=== PATIENT | female | born 1995 | race Native Hawaiian/Other Pacific Islander ===

== ENCOUNTER 2016-08-16 23:08 | Emergency (ER) | payer SELFPAY ==
[~2016-08-16] VITALS: Ht 157.5 cm; Wt 54.7 kg
[~2016-08-16 23:08] MED LIST: IBUP600 PO
[2016-08-16 23:50] VITALS: BP 109/72; PULSE 72; RESP 12; TEMP 98.6; O2SAT 98
[2016-08-17] MEDS ORDERED: MUPI2%T TOPICAL (00:27)
[2016-08-17] MEDS ORDERED: CEPH500C PO (00:27)
--- NOTE | 2016-08-17 00:27 | PD ---
HPI Chief Complaint: ENT Complaint Time Seen by Provider: 00:09 Travel History International Travel<30 days: No Contact w/Intl Traveler<30days: No Traveled to known affect area: No History of Present Illness HPI The patient is a 20-year-old female who presents emergency department for swelling of the left ear secondary to piercing. The patient had a piercing placed in the left ear several months ago, has continued to have irritation, erythema, and swelling around the affected area. The patient tried to remove the piercing, but was unsuccessful. The patient is unsure if she has a secondary infection or an allergy to the metal that was used during the piercing. Symptoms are mild, exacerbated after having her ear pierced, and there are no current alleviating factors. She denies any associated fever, chills, or sweats. She denies . PFSH Past Medical History Diminished Hearing: No Immunizations Current: Yes Social History Alcohol Use: No Tobacco Use: No Substance Use: No Allergies-Medications (Allergen,Severity, Reaction): Coded Allergies: No Known Allergies (Verified , 06/02/15) Reported Meds & Prescriptions Reported Meds & Active Scripts Active Motrin 600 Mg Tab (Ibuprofen) 600 Mg Tab 600 Mg PO Q6H PRN Review of Systems Except as stated in HPI: all other systems reviewed are Neg General / Constitutional: No: Fever HENT: Positive: Other (as noted in the history of present illness) Skin: Positive Other (as noted in history of present illness) Physical Exam Narrative GENERAL: Awake, alert, pleasant 20-year-old female who appears her stated age and is in no acute respiratory distress. SKIN: Focused skin assessment warm/dry. HEAD: Atraumatic. Normocephalic. EYES: Pupils equal and round. No scleral icterus. No injection or drainage. ENT: No nasal bleeding or discharge. The left auricle has a piercing of the posterior aspect with some surrounding erythema and crusting from the piercing. The EAC is clear. NECK: Trachea midline. No JVD. MUSCULOSKELETAL: No obvious deformities. No clubbing. No cyanosis. No edema. NEUROLOGICAL: Awake and alert. No obvious cranial nerve deficits. Motor grossly within normal limits. Normal speech. PSYCHIATRIC: Appropriate mood and affect; insight and judgment normal. Data Data Last Documented VS Vital Signs Date Time Temp Pulse Resp B/P Pulse Ox O2 Delivery O2 Flow Rate FiO2 08/16/16 23:50 98.6 72 12 109/72 98 MDM Medical Decision Making Medical Screen Exam Complete: Yes Emergency Medical Condition: Yes Medical Record Reviewed: Yes Differential Diagnosis Differential diagnosis includes cellulitis, abscess, foreign body reaction, metal allergy. Narrative Course The piercing was removed using Arlene clamps, there was no obvious drainage from the affected area. The patient was placed on Keflex and Bactroban. She is advised to clean the area twice a day with soap and water, monitor for signs of increasing infection, to follow-up with her primary physician. Diagnosis Primary Impression: Foreign body in left ear lobe Qualified Code: S00.452A - Foreign body in left ear lobe, initial encounter Patient Instructions: General Instructions Additional Instructions: Clean the area twice a day with soap and water. Keflex and Bactroban as directed. Follow-up with your primary physician. Return if symptoms worsen or progress. Med/Other Pt SpecificInfo: Prescription(s) given Scripts Mupirocin Topical (Bactroban Topical)22 Gm Cream1 Applic TOPICAL BID 7 Days Ref 0 Prov:Jeff Pedroza MD 08/17/16 Cephalexin 500 Mg [id number] Mg PO Q6H #28 CAP Ref 0 Prov:Jeff Pedroza MD 08/17/16 Disposition: 01 DISCHARGE HOME Condition: Stable Jeff Pedroza MD August 17, 2016 00:27
== END 2016-08-17 00:54 | disposition home or self-care (01) ==
LOC: PHED 23:08
DX: S00.452A Superficial foreign body of left ear, initial encounter (principal); W26.8XXA Contact with other sharp object(s), not elsewhere classified, initial encounter; W45.8XXA Other foreign body or object entering through skin, initial encounter
CPT/HCPCS: 99283

== ENCOUNTER 2017-06-19 18:46 | Emergency (ER) | payer SELFPAY ==
[~2017-06-19] VITALS: Ht 154.9 cm; Wt 57.0 kg
[2017-06-19 18:51] VITALS: BP 119/74; PULSE 80; RESP 16; TEMP 98.8; O2SAT 100
[2017-06-19] MEDS ORDERED: SODIUM CHLOR 0.9% 1000 ML INJ 1,000 ML IV ONE (19:30)
--- NOTE | 2017-06-19 19:59 | PD ---
HPI Chief Complaint: Abdominal Pain Time Seen by Provider: 19:21 Travel History International Travel<30 days: No Contact w/Intl Traveler<30days: No Traveled to known affect area: No History of Present Illness HPI This is a 21-year-old female presented to the ER complaining of nausea vomiting for the last few weeks. Patient is 6 weeks and states that she is unable to hold food down. She tried multiple ways of drinking fluids but states that she threw up fluids as well. Patient did not try any over-the- counter medications for her nausea and did see her rn otolaryngology. She denies any fevers chills or night sweats, denies any diarrhea or abdominal pain. There is no elevation of the discharge. PFSH Past Medical History Diminished Hearing: No Immunizations Current: Yes ?: LMP: 05/03/2017 Social History Alcohol Use: No Tobacco Use: No Substance Use: No Allergies-Medications (Allergen,Severity, Reaction): Coded Allergies: No Known Allergies (Verified Adverse Reaction, Unknown, 06/19/17) Reported Meds & Prescriptions Reported Meds & Active Scripts Active No Active Prescriptions or Reported Medications Review of Systems Except as stated in HPI: all other systems reviewed are Neg Physical Exam Narrative GENERAL: Alert oriented 3 in no acute distress SKIN: Focused skin assessment warm/dry. HEAD: Atraumatic. Normocephalic. EYES: Pupils equal and round. No scleral icterus. No injection or drainage. ENT: No nasal bleeding or discharge. Mucous membranes pink and moist. NECK: Trachea midline. CARDIOVASCULAR: Regular rate and rhythm. No murmur appreciated. RESPIRATORY: No accessory muscle use. Clear to auscultation. Breath sounds equal bilaterally. GASTROINTESTINAL: Abdomen soft, non-tender, nondistended. Hepatic and splenic margins not palpable. MUSCULOSKELETAL: No obvious deformities. No clubbing. No cyanosis. No edema. NEUROLOGICAL: Awake and alert. No obvious cranial nerve deficits. Motor grossly within normal limits. Normal speech. PSYCHIATRIC: Appropriate mood and affect; insight and judgment normal. Data Data Last Documented VS Vital Signs Date Time Temp Pulse Resp B/P (MAP) Pulse Ox O2 Delivery O2 Flow Rate FiO2 06/19/17 20:16 74 12 95/53 (67) 100 Room Air 06/19/17 18:51 98.8 Orders Orders Complete Blood Count With Diff (06/19/17 19:21) Comprehensive Metabolic Panel (06/19/17 19:21) Urinalysis - C+S If Indicated (06/19/17 19:21) Sodium Chlor 0.9% 1000 Ml Inj (Ns 1000 M (06/19/17 19:30) Ed Urine Pregnancytest Poc (06/19/17 19:24) Labs Laboratory Tests Test 06/19/17 19:45 White Blood Count 8.0 TH/MM3 Red Blood Count 4.61 MIL/MM3 Hemoglobin 13.3 GM/DL Hematocrit 39.0 % Mean Corpuscular Volume 84.8 FL Mean Corpuscular Hemoglobin 28.9 PG Mean Corpuscular Hemoglobin Concent 34.0 % Red Cell Distribution Width 12.7 % Platelet Count 273 TH/MM3 Mean Platelet Volume 7.5 FL Neutrophils (%) (Auto) 65.0 % Lymphocytes (%) (Auto) 27.3 % Monocytes (%) (Auto) 6.9 % Eosinophils (%) (Auto) 0.4 % Basophils (%) (Auto) 0.4 % Neutrophils # (Auto) 5.2 TH/MM3 Lymphocytes # (Auto) 2.2 TH/MM3 Monocytes # (Auto) 0.6 TH/MM3 Eosinophils # (Auto) 0.0 TH/MM3 Basophils # (Auto) 0.0 TH/MM3 CBC Comment DIFF FINAL Differential Comment Urine Collection Type CLEAN CATCH Urine Color YELLOW Urine Turbidity SL CLOUDY Urine pH 7.5 Urine Specific [place] 1.020 Urine Protein NEG mg/dL Urine Glucose (UA) NEG mg/dL Urine Ketones NEG mg/dL Urine Occult Blood NEG Urine Nitrite NEG Urine Bilirubin NEG Urine Urobilinogen 0.2 MG/DL Urine Leukocyte Esterase NEG Urine RBC 0-3 /hpf Urine WBC 3-5 /hpf Urine Squamous Epithelial Cells 0-5 /hpf Urine Amorphous Sediment SMALL Urine Bacteria OCC /hpf Urine Mucus FEW /lpf Microscopic Urinalysis Comment CULT NOT INDICATED Blood Urea Nitrogen 7 MG/DL Creatinine 0.72 MG/DL Random Glucose 84 MG/DL Total Protein 7.6 GM/DL Albumin 3.6 GM/DL Calcium Level 9.1 MG/DL Alkaline Phosphatase 66 U/L Aspartate Amino Transf (AST/SGOT) 32 U/L Alanine Aminotransferase (ALT/SGPT) 58 U/L Total Bilirubin 0.6 MG/DL Sodium Level 136 MEQ/L Potassium Level 3.8 MEQ/L Chloride Level 104 MEQ/L Carbon Dioxide Level 25.5 MEQ/L Anion Gap 7 MEQ/L Estimat Glomerular Filtration Rate 101 ML/MIN MDM Medical Decision Making Medical Screen Exam Complete: Yes Emergency Medical Condition: Yes Differential Diagnosis Hyperemesis gravidarum. Narrative Course This is a 21-year-old female presented the ER for nausea vomiting during . Patient is not sick appearing and is able to hold fluids down. Labs are within normal limits she improved with IV fluids in the ER and will be discharged to follow-up with OB. Diagnosis Primary Impression: Hyperemesis gravidarum Additional Instructions: Follow-up with her rn otolaryngology, return here if symptoms change or do not improve. Scripts Doxylamine Succinate (Unisom Sleep Aid) 25 Mg Tablet 25 MG PO BID for Nausea for 10 Days Prov: Jacky Quesada MD 06/19/17 Disposition: 01 DISCHARGE HOME Condition: Stable Jacky Quesada MD Jun 19, 2017 19:59
[2017-06-19 20:09] LABS: AUTOMATED NEUTROPHIL # 5.2 TH/MM3 (1.8-7.7); BASOPHIL % 0.4 % (0.0-2.0); EOSINOPHIL % 0.4 % (0.0-4.0); HEMOGLOBIN 13.3 GM/DL (11.6-15.3); LYMPH % 27.3 % (9.0-44.0); LYMPHOCYTE # 2.2 TH/MM3 (1.0-4.8); MEAN CELL VOLUME 84.8 FL (80.0-100.0); MEAN CORPUSCULAR HEMOGLOBIN 28.9 PG (27.0-34.0); MEAN PLATELET VOLUME 7.5 FL (7.0-11.0); MONO % 6.9 % (0.0-8.0); MONOCYTE # 0.6 TH/MM3 (0-0.9); PLATELET COUNT 273 TH/MM3 (150-450); RED BLOOD COUNT 4.61 MIL/MM3 (4.00-5.30); RED CELL DISTRIBUTION WIDTH 12.7 % (11.6-17.2)
[2017-06-19 20:16] VITALS: BP 95/53; PULSE 74; RESP 12; O2SAT 100
[2017-06-19 20:23] LABS: BILIRUBIN, URINE NEG (NEG); BLOOD, URINE NEG (NEG); CHLORIDE 104 MEQ/L (98-107); GLUCOSE,URINE NEG (NEG); KETONE, URINE NEG (NEG); NITRITE,URINE NEG (NEG); PH, URINE 7.5 (5.0-8.5); SODIUM (NA) 136 MEQ/L (136-145); URINE COLOR YELLOW (YELLW/STRAW); URINE LEUKOCYTE ESTERASE NEG (NEG)
[2017-06-19 20:26] LABS: ALBUMIN 3.6 GM/DL (3.4-5.0); BICARBONATE 25.5 MEQ/L (21.0-32.0); BLOOD UREA NITROGEN 7 MG/DL (7-18); CALCIUM 9.1 MG/DL (8.5-10.1); GLUCOSE,RANDOM 84 MG/DL (74-106)
[2017-06-19 20:29] LABS: ALT (GPT) 58 U/L (10-53); AST (GOT) 32 U/L (15-37)
[2017-06-19 20:30] LABS: CREATININE 0.72 MG/DL (0.50-1.00); GLOMERULAR FILTRATION RATE 101 ML/MIN (>89)
[2017-06-19 20:31] LABS: TOTAL BILIRUBIN ADULT 0.6 MG/DL (0.2-1.0); TOTAL PROTEIN 7.6 GM/DL (6.4-8.2)
[2017-06-19 20:32] LABS: ALKALINE PHOSPHATASE 66 U/L (45-117)
[2017-06-19 20:46] LABS: MUCUS URINE FEW /lpf (OCC)
[2017-06-19 20:47] LABS: SQUAMOUS EPITHELIAL CELL URINE 0-5 /hpf (0-5)
[2017-06-19 20:48] LABS: AMORPHOUS SEDIMENT, URINE SMALL; BACTERIA, URINE OCC /hpf; RBC, URINE 0-3 /hpf (0-3)
[2017-06-19] MEDS ORDERED: UNIS25TA3 PO (20:55)
[2017-06-19 21:11] VITALS: BP 112/55
== END 2017-06-19 21:15 | disposition home or self-care (01) ==
LOC: PHED 18:46
DX: O21.0 Mild hyperemesis gravidarum (principal); Z3A.01 Less than 8 weeks gestation of pregnancy
CPT/HCPCS: 80053; 81001; 84703; 85025; 96360; 99284; J7030

== ENCOUNTER 2017-06-22 15:38 | Emergency (ER) | payer SELFPAY ==
[~2017-06-22] VITALS: Ht 154.9 cm; Wt 59.0 kg
[~2017-06-22 15:38] MED LIST changes: -IBUP600 PO; +UNIS25TA3 PO
[2017-06-22 15:57] VITALS: BP 100/86; PULSE 81; RESP 17; TEMP 98.6; O2SAT 100
[2017-06-22 16:32] LABS: AUTOMATED NEUTROPHIL # 4.9 TH/MM3 (1.8-7.7); BASOPHIL % 0.5 % (0.0-2.0); EOSINOPHIL % 0.3 % (0.0-4.0); HEMATOCRIT 40.9 % (35.0-46.0); HEMOGLOBIN 13.8 GM/DL (11.6-15.3); LYMPH % 25.5 % (9.0-44.0); LYMPHOCYTE # 1.8 TH/MM3 (1.0-4.8); MEAN CELL VOLUME 86.4 FL (80.0-100.0); MEAN CORPUSCULAR HEMOGLOBIN 29.2 PG (27.0-34.0); MEAN CORPUSCULAR HGB CONC 33.8 % (32.0-36.0); MEAN PLATELET VOLUME 7.6 FL (7.0-11.0); MONO % 5.9 % (0.0-8.0); MONOCYTE # 0.4 TH/MM3 (0-0.9); NEUT % 67.8 % (16.0-70.0); PLATELET COUNT 252 TH/MM3 (150-450); RED BLOOD COUNT 4.74 MIL/MM3 (4.00-5.30); RED CELL DISTRIBUTION WIDTH 13.3 % (11.6-17.2); WHITE BLOOD COUNT 7.2 TH/MM3 (4.0-11.0)
[2017-06-22 16:42] LABS: BACTERIA, URINE RARE /hpf; BILIRUBIN, URINE NEG (NEG); BLOOD, URINE TRACE (NEG); GLUCOSE,URINE NEG (NEG); KETONE, URINE NEG (NEG); MUCUS URINE FEW /lpf (OCC); NITRITE,URINE NEG (NEG); SQUAMOUS EPITHELIAL CELL URINE 15 /hpf (0-5); URINE COLOR YELLOW (YELLW/STRAW); URINE LEUKOCYTE ESTERASE SMALL (NEG)
[2017-06-22 16:56] LABS: ALBUMIN 3.8 GM/DL (3.4-5.0); AST (GOT) 20 U/L (15-37); BICARBONATE 25.5 MEQ/L (21.0-32.0); BLOOD UREA NITROGEN 6 MG/DL (7-18); CHLORIDE 106 MEQ/L (98-107); CREATININE 0.74 MG/DL (0.50-1.00); GLOMERULAR FILTRATION RATE 98 ML/MIN (>89); GLUCOSE,RANDOM 86 MG/DL (74-106); SODIUM (NA) 138 MEQ/L (136-145)
[2017-06-22 17:00] LABS: ALKALINE PHOSPHATASE 66 U/L (45-117); ALT (GPT) 59 U/L (10-53); TOTAL BILIRUBIN ADULT 0.4 MG/DL (0.2-1.0); TOTAL PROTEIN 7.9 GM/DL (6.4-8.2)
== END 2017-06-22 21:08 | disposition left against medical advice (07) ==
LOC: NED 15:38
DX: R10.9 Unspecified abdominal pain (principal)
CPT/HCPCS: 80053; 81001; 85025; 99281

== ENCOUNTER 2017-07-14 06:16 | Emergency (ER) | payer OTHER ==
[~2017-07-14] VITALS: Ht 157.5 cm; Wt 55.0 kg
[2017-07-14 06:19] VITALS: BP 125/76; PULSE 76; RESP 16; TEMP 98.3; O2SAT 100
[2017-07-14] MEDS ORDERED: SODIUM CHLOR 0.9% 1000 ML INJ 1,000 ML IV SCH (07:09)
[2017-07-14] MEDS ORDERED: SODIUM CHLORIDE 0.9% FLUSH 10 ML FLUSH IV FLUSH PRN (07:15)
[2017-07-14] MEDS ORDERED: ONDANSETRON HCL 4 MG/2 ML VIAL IVP ONE (07:15)
--- NOTE | 2017-07-14 07:18 | PD ---
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 Patient states that she is about 9 weeks . Patient states that the abdominal pain with intermittent nausea vomiting started several weeks ago. Patient states abdominal pain and cramping pain and sharp pain more severe around epigastric area. Patient denies any pain radiation. Patient denies any dysuria frequency. Patient denies any vaginal discharge or bleeding. Patient denies any fever chills. Patient was seen at local emergency room and given medication for nausea vomiting without relief. Patient denies any history of abdominal pain or recurrent nausea vomiting before . PFSH Past Medical History Medical History: Denies Significant Hx Diminished Hearing: No Immunizations Current: Yes Tetanus Vaccination: Unknown Influenza Vaccination: No ?: LMP: 05/03/2017 Past Surgical History Surgical History: No Previous Surgery Social History Alcohol Use: No Tobacco Use: No Substance Use: No Allergies-Medications (Allergen,Severity, Reaction): Coded Allergies: No Known Allergies (Verified Adverse Reaction, Unknown, 07/14/17) Reported Meds & Prescriptions Reported Meds & Active Scripts Active Protonix (Pantoprazole Sodium) 40 Mg Tab 40 Mg PO DAILY Phenergan (Promethazine HCl) 25 Mg Tablet 25 Mg PO Q6H PRN Unisom Sleep Aid (Doxylamine Succinate) 25 Mg Tablet 25 Mg PO BID 10 Days Reported Vitamin B-6 (Pyridoxine HCl) 100 Mg Tab 100 Mg PO DAILY Review of Systems General / Constitutional: No: Fever Eyes: No: Visual changes HENT: No: Headaches Cardiovascular: No: Chest Pain or Discomfort Respiratory: No: Shortness of Breath Gastrointestinal: Positive: Nausea, Vomiting, Abdominal Pain Genitourinary: No: Dysuria Musculoskeletal: No: Pain Skin: No Rash Neurologic: No: Weakness Psychiatric: No: Depression Endocrine: No: Polydipsia Hematologic/Lymphatic: No: Easy Bruising Physical Exam Narrative GENERAL: Well-nourished, well-developed patient. SKIN: Focused skin assessment warm/dry. HEAD: Normocephalic. EYES: No scleral icterus. No injection or drainage. NECK: Supple, trachea midline. No JVD or lymphadenopathy. CARDIOVASCULAR: Regular rate and rhythm without murmurs, gallops, or rubs. RESPIRATORY: Breath sounds equal bilaterally. No accessory muscle use. GASTROINTESTINAL: Abdomen soft, nondistended. Patient has moderate tenderness on palpation epigastric area. No rebound tenderness. No mass. MUSCULOSKELETAL: No cyanosis, or edema. BACK: Nontender without obvious deformity. No CVA tenderness. Data Data Last Documented VS Vital Signs Date Time Temp Pulse Resp B/P (MAP) Pulse Ox O2 Delivery O2 Flow Rate FiO2 07/14/17 06:19 98.3 76 16 125/76 (92) 100 Orders Orders Beta Hcg (Quant/Titer) (07/14/17 07:09) Complete Blood Count With Diff (07/14/17 07:09) Comprehensive Metabolic Panel (07/14/17 07:09) Lipase (07/14/17 07:09) Urinalysis - C+S If Indicated (07/14/17 07:09) Us Abdomen Gallbladder (07/14/17 ) Iv Access Insert/Monitor (07/14/17 07:09) Ecg Monitoring (07/14/17 07:09) Oximetry (07/14/17 07:09) Ondansetron Inj (Zofran Inj) (07/14/17 07:15) Sodium Chlor 0.9% 1000 Ml Inj (Ns 1000 M (07/14/17 07:09) Sodium Chloride 0.9% Flush (Ns Flush) (07/14/17 07:15) Us Pelvis (Ques Pr/Ect)W Trans (07/14/17 07:09) Labs Laboratory Tests Test 07/14/17 07:20 07/14/17 08:15 White Blood Count 10.0 TH/MM3 Red Blood Count 4.68 MIL/MM3 Hemoglobin 13.9 GM/DL Hematocrit 40.2 % Mean Corpuscular Volume 85.7 FL Mean Corpuscular Hemoglobin 29.8 PG Mean Corpuscular Hemoglobin Concent 34.7 % Red Cell Distribution Width 13.2 % Platelet Count 253 TH/MM3 Mean Platelet Volume 7.9 FL Neutrophils (%) (Auto) 62.6 % Lymphocytes (%) (Auto) 28.8 % Monocytes (%) (Auto) 7.7 % Eosinophils (%) (Auto) 0.4 % Basophils (%) (Auto) 0.5 % Neutrophils # (Auto) 6.3 TH/MM3 Lymphocytes # (Auto) 2.9 TH/MM3 Monocytes # (Auto) 0.8 TH/MM3 Eosinophils # (Auto) 0.0 TH/MM3 Basophils # (Auto) 0.0 TH/MM3 CBC Comment DIFF FINAL Differential Comment Blood Urea Nitrogen 4 MG/DL Creatinine 0.73 MG/DL Random Glucose 80 MG/DL Total Protein 7.8 GM/DL Albumin 3.7 GM/DL Calcium Level 9.2 MG/DL Alkaline Phosphatase 69 U/L Aspartate Amino Transf (AST/SGOT) 23 U/L Alanine Aminotransferase (ALT/SGPT) 50 U/L Total Bilirubin 0.4 MG/DL Sodium Level 139 MEQ/L Potassium Level 3.8 MEQ/L Chloride Level 106 MEQ/L Carbon Dioxide Level 24.2 MEQ/L Anion Gap 9 MEQ/L Estimat Glomerular Filtration Rate 100 ML/MIN Lipase 124 U/L Human Chorionic Gonadotropin, Quant [id number] MIU/ML Urine Color YELLOW Urine Turbidity HAZY Urine pH 6.0 Urine Specific [place] 1.023 Urine Protein TRACE mg/dL Urine Glucose (UA) NEG mg/dL Urine Ketones NEG mg/dL Urine Occult Blood NEG Urine Nitrite NEG Urine Bilirubin NEG Urine Urobilinogen 2.0 MG/DL Urine Leukocyte Esterase SMALL Urine RBC 2 /hpf Urine WBC 3 /hpf Urine Squamous Epithelial Cells 11 /hpf Urine Mucus MANY /lpf Microscopic Urinalysis Comment CULT NOT INDICATED MDM Medical Decision Making Medical Screen Exam Complete: Yes Emergency Medical Condition: Yes Interpretation(s) 8:31 AM. CBC within normal limits. CMP within normal limits. Beta-hCG [id number]. UA is negative. Differential Diagnosis Differential diagnoses including gastritis, PUD, gastritis, cholecystitis, colitis, UTI, pyelonephritis, nephrolithiasis, threatened AB, ectopic . Narrative Course 21-year-old female, with nausea vomiting and epigastric abdominal pain. Patient is about 9 weeks . Diagnosis Primary Impression: Gastritis Qualified Codes: K29.00 - Acute gastritis without bleeding Additional Impression: Qualified Codes: Z3A.10 - 10 weeks gestation of Patient Instructions: General Instructions Additional Instructions: Take medications as directed. Follow-up with OB physician. Return if worse. Med/Other Pt SpecificInfo: Prescription(s) given Scripts Pantoprazole (Protonix) 40 Mg Tab 40 MG PO DAILY for Reflux, #30 TAB 0 Refills Prov: Amarjit Gomez MD 07/14/17 Promethazine (Phenergan) 25 Mg Tablet 25 MG PO Q6H Y for NAUSEA OR VOMITING, #20 TAB 0 Refills Prov: Amarjit Gomez MD 07/14/17 Disposition: 01 DISCHARGE HOME Condition: Stable Amarjit Gomez MD Jul 14, 2017 07:18
[2017-07-14 07:29] LABS: AUTOMATED NEUTROPHIL # 6.3 TH/MM3 (1.8-7.7); BASOPHIL % 0.5 % (0.0-2.0); EOSINOPHIL % 0.4 % (0.0-4.0); HEMATOCRIT 40.2 % (35.0-46.0); HEMOGLOBIN 13.9 GM/DL (11.6-15.3); LYMPH % 28.8 % (9.0-44.0); LYMPHOCYTE # 2.9 TH/MM3 (1.0-4.8); MEAN CELL VOLUME 85.7 FL (80.0-100.0); MEAN CORPUSCULAR HEMOGLOBIN 29.8 PG (27.0-34.0); MEAN CORPUSCULAR HGB CONC 34.7 % (32.0-36.0); MEAN PLATELET VOLUME 7.9 FL (7.0-11.0); MONO % 7.7 % (0.0-8.0); MONOCYTE # 0.8 TH/MM3 (0-0.9); NEUT % 62.6 % (16.0-70.0); PLATELET COUNT 253 TH/MM3 (150-450); RED BLOOD COUNT 4.68 MIL/MM3 (4.00-5.30); RED CELL DISTRIBUTION WIDTH 13.2 % (11.6-17.2)
[2017-07-14] MEDS ORDERED: PYRI100T PO (07:30)
[2017-07-14 07:48] LABS: ALBUMIN 3.7 GM/DL (3.4-5.0); ALT (GPT) 50 U/L (10-53); AST (GOT) 23 U/L (15-37); BICARBONATE 24.2 MEQ/L (21.0-32.0); BLOOD UREA NITROGEN 4 MG/DL (7-18); CALCIUM 9.2 MG/DL (8.5-10.1); CHLORIDE 106 MEQ/L (98-107); CREATININE 0.73 MG/DL (0.50-1.00); GLOMERULAR FILTRATION RATE 100 ML/MIN (>89); GLUCOSE,RANDOM 80 MG/DL (74-106); SODIUM (NA) 139 MEQ/L (136-145)
[2017-07-14 08:05] LABS: ALKALINE PHOSPHATASE 69 U/L (45-117); TOTAL BILIRUBIN ADULT 0.4 MG/DL (0.2-1.0); TOTAL PROTEIN 7.8 GM/DL (6.4-8.2)
[2017-07-14 08:32] LABS: BILIRUBIN, URINE NEG (NEG); BLOOD, URINE NEG (NEG); GLUCOSE,URINE NEG (NEG); KETONE, URINE NEG (NEG); MUCUS URINE MANY /lpf (OCC); NITRITE,URINE NEG (NEG); SQUAMOUS EPITHELIAL CELL URINE 11 /hpf (0-5); URINE COLOR YELLOW (YELLW/STRAW); URINE LEUKOCYTE ESTERASE SMALL (NEG)
[2017-07-14] MEDS ORDERED: PROM25TA10 PO (08:34)
[2017-07-14] MEDS ORDERED: PROT40TA PO (08:34)
[2017-07-14 09:08] VITALS: BP 120/70
--- NOTE | 2017-07-14 09:13 | RADRPT ---
EXAM DATE/TIME: 07/14/2017 07:56 [facility] COMPARISON: No previous studies available for comparison. INDICATIONS : Right upper quadrant pain. MEDICAL HISTORY : Urinary tract infection. SURGICAL HISTORY : None. ENCOUNTER: Initial ACUITY: 1 month PAIN SCORE: 2/10 LOCATION: Right upper quadrant MEASUREMENTS: LIVER: 15.4 cm length COMMON DUCT: 3 mm RIGHT KIDNEY: 8.8 x 3.9 x 4.0 cm FINDINGS: LIVER: Normal echotexture without focal lesion or ductal dilatation. COMMON DUCT: No intraluminal mass or stone visualized. GALLBLADDER: Contains no stones, demonstrates no wall thickening or pericholecystic fluid. PANCREAS: The visualized portions are within normal limits. RIGHT KIDNEY: No evidence of hydronephrosis, stone, or mass. CONCLUSION: Normal examination. Obi Medina MD on July 14, 2017 at 9:10 Board Certified Radiologist. This report was verified electronically.
--- NOTE | 2017-07-14 09:15 | RADRPT ---
EXAM DATE/TIME: 07/14/2017 08:09 [facility] COMPARISON: No previous studies available for comparison. INDICATIONS : Pelvic pain during . LAB(S): Beta-hC MEDICAL HISTORY : Urinary tract infection. SURGICAL HISTORY : None. ENCOUNTER: Initial ACUITY: 1 month PAIN SCORE: 2/10 LOCATION: Bilateral pelvis MEASUREMENTS: UTERUS: 9.2 x 8.8 x 7.4 cm ENDOMETRIAL STRIPE: >20 mm RIGHT OVARY: 3.3 x 1.9 x 2.0 cm LEFT OVARY: 2.7 x 1.7 x 1.9 cm FREE FLUID: No CROWN RUMP LENGTH: Or3.0 = 10 WKS 0 DAYS FHR: 155 BPM FINDINGS: UTERUS: The myometrium has homogeneous echotexture without mass.There is a intrauterine with a 3 cm crown-rump length corresponding with 10 week gestation. The gestational sac measures 4.2 cm correspo nding with a 9 week 4 day gestation. RIGHT OVARY: Ovary contains no mass or significant cystic lesion. LEFT OVARY: Ovary contains no mass or significant cystic lesion. MISCELLANEOUS: No free fluid. CONCLUSION: Intrauterine gestational sac with viable IUP. heart rate 155 beats per minute. Obi Medina MD on July 14, 2017 at 9:11 Board Certified Radiologist. This report was verified electronically.
== END 2017-07-14 09:09 | disposition home or self-care (01) ==
LOC: NEPC 06:16
DX: O99.611 Diseases of the digestive system complicating pregnancy, first trimester (principal); K29.70 Gastritis, unspecified, without bleeding; Z3A.09 9 weeks gestation of pregnancy; Z79.899 Other long term (current) drug therapy; Z34.91 Encounter for supervision of normal pregnancy, unspecified, first trimester
CPT/HCPCS: 76700; 76705; 80053; 81001; 83690; 84702; 85025; 96361; 96374; 99285; J2405; J7030

== ENCOUNTER 2017-08-10 15:15 | Emergency (ER) | payer MEDICAID, OTHER ==
[~2017-08-10] VITALS: Ht 154.9 cm; Wt 52.0 kg
[~2017-08-10 15:15] MED LIST changes: +PROM25TA10 PO; +PROT40TA PO; +PYRI100T PO
[2017-08-10 15:28] VITALS: BP 118/58; PULSE 82; RESP 16; TEMP 97.8; O2SAT 99
[2017-08-10] MEDS ORDERED: SODIUM CHLOR 0.9% 1000 ML INJ 1,000 ML IV ONE (15:47)
[2017-08-10] MEDS ORDERED: SODIUM CHLORIDE 0.9% FLUSH 10 ML FLUSH IVF PRN (16:00)
--- NOTE | 2017-08-10 16:19 | PD ---
HPI Chief Complaint: Syncope/Near-Syncope Time Seen by Provider: 15:46 Travel History International Travel<30 days: No Contact w/Intl Traveler<30days: No Traveled to known affect area: No History of Present Illness HPI The patient is 21 years old. She is known to be 15 weeks . She was taking a shower today and loss consciousness. She fell to the ground. Her mother helped her up having her the patient fall. Estimated duration of loss consciousness approximately 20 seconds. No seizure-like activity. No similar prior events. No chest pain or shortness of breath preceded the episode. The patient has been vomiting quite often at least daily for the past few weeks. Patient has mild nausea in the ED however no complaint otherwise. No vaginal bleeding or discharge. 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 [facility] Past Medical History Diminished Hearing: No Immunizations Current: Yes ?: Social History Alcohol Use: No Tobacco Use: No Substance Use: No Allergies-Medications (Allergen,Severity, Reaction): Coded Allergies: No Known Allergies (Verified Adverse Reaction, Unknown, 07/14/17) Reported Meds & Prescriptions Reported Meds & Active Scripts Active Keflex (Cephalexin) 500 Mg Cap 500 Mg PO Q8H 5 Days Phenergan Supp (Promethazine HCl) 25 Mg Supp 25 Mg RECTAL Q6H PRN Protonix (Pantoprazole Sodium) 40 Mg Tab 40 Mg PO DAILY Phenergan (Promethazine HCl) 25 Mg Tablet 25 Mg PO Q6H PRN Unisom Sleep Aid (Doxylamine Succinate) 25 Mg Tablet 25 Mg PO BID 10 Days Reported Vitamin B-6 (Pyridoxine HCl) 100 Mg Tab 100 Mg PO DAILY Review of Systems Except as stated in HPI: all other systems reviewed are Neg General / Constitutional: No: Fever Eyes: No: Diploplia HENT: No: Headaches Physical Exam Narrative GENERAL: 21-year-old female pleasant well-nourished well-developed no acute distress Vital Signs Date Time Temp Pulse Resp B/P (MAP) Pulse Ox O2 Delivery O2 Flow Rate FiO2 08/10/17 15:28 97.8 82 16 118/58 (78) 99 SKIN: Warm and dry. HEAD: Atraumatic. Normocephalic. EYES: Pupils equal and round. No scleral icterus. No injection or drainage. ENT: No nasal bleeding or discharge. Mucous membranes pink and moist. NECK: Trachea midline. No JVD. CARDIOVASCULAR: Regular rate and rhythm. RESPIRATORY: No accessory muscle use. Clear to auscultation. Breath sounds equal bilaterally. GASTROINTESTINAL: Abdomen soft, non-tender, nondistended. Hepatic and splenic margins not palpable. MUSCULOSKELETAL: Extremities without clubbing, cyanosis, or edema. No obvious deformities. NEUROLOGICAL: Awake and alert. No obvious cranial nerve deficits. Motor grossly within normal limits. Five out of 5 muscle strength in the arms and legs. Normal speech. PSYCHIATRIC: Appropriate mood and affect; insight and judgment normal. Data Data Last Documented VS Vital Signs Date Time Temp Pulse Resp B/P (MAP) Pulse Ox O2 Delivery O2 Flow Rate FiO2 08/10/17 16:22 99 08/10/17 15:28 97.8 82 16 118/58 (78) Orders Orders Electrocardiogram (08/10/17 15:47) Complete Blood Count With Diff (08/10/17 15:47) Comprehensive Metabolic Panel (08/10/17 15:47) Magnesium (Mg) (08/10/17 15:47) Urinalysis - C+S If Indicated (08/10/17 15:47) Ecg Monitoring (08/10/17 15:47) Iv Access Insert/Monitor (08/10/17 15:47) Oximetry (08/10/17 15:47) Sodium Chloride 0.9% Flush (Ns Flush) (08/10/17 16:00) Sodium Chlor 0.9% 1000 Ml Inj (Ns 1000 M (08/10/17 15:47) Chest, Single Ap (08/10/17 ) Ceftriaxone Inj (Rocephin Inj) (08/10/17 17:00) Ed Discharge Order (08/10/17 16:56) Ed Discharge Order (08/10/17 16:57) Labs Laboratory Tests Test 08/10/17 16:00 White Blood Count 8.1 TH/MM3 Red Blood Count 4.62 MIL/MM3 Hemoglobin 13.8 GM/DL Hematocrit 40.8 % Mean Corpuscular Volume 88.3 FL Mean Corpuscular Hemoglobin 30.0 PG Mean Corpuscular Hemoglobin Concent 33.9 % Red Cell Distribution Width 13.3 % Platelet Count 245 TH/MM3 Mean Platelet Volume 7.8 FL Neutrophils (%) (Auto) 77.7 % Lymphocytes (%) (Auto) 17.1 % Monocytes (%) (Auto) 4.9 % Eosinophils (%) (Auto) 0.1 % Basophils (%) (Auto) 0.2 % Neutrophils # (Auto) 6.3 TH/MM3 Lymphocytes # (Auto) 1.4 TH/MM3 Monocytes # (Auto) 0.4 TH/MM3 Eosinophils # (Auto) 0.0 TH/MM3 Basophils # (Auto) 0.0 TH/MM3 CBC Comment DIFF FINAL Differential Comment Urine Color DARK-YELLOW Urine Turbidity HAZY Urine pH 7.0 Urine Specific [place] 1.022 Urine Protein 30 mg/dL Urine Glucose (UA) NEG mg/dL Urine Ketones NEG mg/dL Urine Occult Blood SMALL Urine Nitrite NEG Urine Bilirubin NEG Urine Urobilinogen 4.0 MG/DL Urine Leukocyte Esterase MOD Urine RBC 30 /hpf Urine WBC 5 /hpf Urine Squamous Epithelial Cells 16 /hpf Urine Bacteria RARE /hpf Urine Mucus MANY /lpf Microscopic Urinalysis Comment CULT NOT INDICATED Blood Urea Nitrogen 7 MG/DL Creatinine 0.75 MG/DL Random Glucose 78 MG/DL Total Protein 7.4 GM/DL Albumin 3.3 GM/DL Calcium Level 8.9 MG/DL Magnesium Level 1.8 MG/DL Alkaline Phosphatase 69 U/L Aspartate Amino Transf (AST/SGOT) 23 U/L Alanine Aminotransferase (ALT/SGPT) 39 U/L Total Bilirubin 0.4 MG/DL Sodium Level 140 MEQ/L Potassium Level 3.8 MEQ/L Chloride Level 105 MEQ/L Carbon Dioxide Level 25.2 MEQ/L Anion Gap 10 MEQ/L Estimat Glomerular Filtration Rate 97 ML/MIN [facility] Medical Decision Making Medical Screen Exam Complete: Yes Emergency Medical Condition: Yes Medical Record Reviewed: Yes Differential Diagnosis Arrhythmia, PE, hypovolemia, electrolyte imbalance Narrative Course CBC & BMP Diagram 08/10/17 16:00 Albumin 3.3 L, Calcium Level 8.9, Magnesium Level 1.8, Aspartate Amino Transf ( AST/SGOT) 23 Urinalysis shows hematuria with moderate leukocyte esterase Shows a sinus rhythm with a ND interval of 107 ms, rate 69 axis normal The patient has symptoms consistent with a UTI we will provide a dose of Rocephin here. Keflex prescription. Phenergan prescription. There is a short ND interval which is on anticipated for this 21-year-old female. Follow-up with primary care discussed and the patient verbalized understanding. Short ND interval discussed with patient and mother both agree to follow-up with cardiology. Patient is otherwise well-appearing and considered safe for discharge. Diagnosis Primary Impression: Qualified Codes: Z3A.15 - 15 weeks gestation of Additional Impressions: Syncope and collapse Nausea & vomiting Qualified Codes: R11.2 - Nausea with vomiting, unspecified Bacteriuria during Referrals: Mel Robbins MD call for appointment Chavo Freedman DO [employer] call for appointment Med/Other Pt SpecificInfo: Prescription(s) given Scripts Cephalexin (Keflex) 500 Mg Cap 500 MG PO Q8H for Infection for 5 Days, #15 CAP 0 Refills Prov: Hong Freedman MD 08/10/17 Promethazine Supp (Phenergan Supp) 25 Mg Supp 25 MG RECTAL Q6H Y for NAUSEA OR VOMITING, #6 SUPP 0 Refills Prov: Hong Freedman MD 08/10/17 Disposition: 01 DISCHARGE HOME Condition: Stable Hong Freedman MD August 10, 2017 16:19
[2017-08-10 16:22] VITALS: O2SAT 99
[2017-08-10 16:28] LABS: AUTOMATED NEUTROPHIL # 6.3 TH/MM3 (1.8-7.7); BASOPHIL % 0.2 % (0.0-2.0); EOSINOPHIL % 0.1 % (0.0-4.0); HEMATOCRIT 40.8 % (35.0-46.0); HEMOGLOBIN 13.8 GM/DL (11.6-15.3); LYMPH % 17.1 % (9.0-44.0); LYMPHOCYTE # 1.4 TH/MM3 (1.0-4.8); MEAN CELL VOLUME 88.3 FL (80.0-100.0); MEAN CORPUSCULAR HGB CONC 33.9 % (32.0-36.0); MEAN PLATELET VOLUME 7.8 FL (7.0-11.0); MONO % 4.9 % (0.0-8.0); MONOCYTE # 0.4 TH/MM3 (0-0.9); NEUT % 77.7 % (16.0-70.0); PLATELET COUNT 245 TH/MM3 (150-450); RED BLOOD COUNT 4.62 MIL/MM3 (4.00-5.30); RED CELL DISTRIBUTION WIDTH 13.3 % (11.6-17.2); WHITE BLOOD COUNT 8.1 TH/MM3 (4.0-11.0)
[2017-08-10 16:41] LABS: BACTERIA, URINE RARE /hpf; BILIRUBIN, URINE NEG (NEG); BLOOD, URINE SMALL (NEG); GLUCOSE,URINE NEG (NEG); KETONE, URINE NEG (NEG); MUCUS URINE MANY /lpf (OCC); NITRITE,URINE NEG (NEG); SQUAMOUS EPITHELIAL CELL URINE 16 /hpf (0-5); URINE COLOR DARK-YELLOW (YELLW/STRAW); URINE LEUKOCYTE ESTERASE MOD (NEG)
--- NOTE | 2017-08-10 16:41 | RADRPT ---
EXAM DATE: 08/10/2017 4:38 PM EDT AGE/SEX: 21 years / Female INDICATIONS: Vomiting. CLINICAL DATA: This is the patient's initial encounter. Patient reports that signs and symptoms have been present for 2 months and indicates a pain score of 0/10. MEDICAL/SURGICAL HISTORY: None. None. COMPARISON: No prior [facility] exams available for comparison. FINDINGS: A single AP view of the chest demonstrates the lungs to be symmetrically aerated without evidence of mass, infiltrate or effusion. The cardiomediastinal contours are unremarkable. Osseous structures a re intact. CONCLUSION: No acute abnormality is seen. Electronically signed by: Andrew Orlando MD 08/10/2017 4:39 PM EDT
[2017-08-10 16:42] LABS: ALBUMIN 3.3 GM/DL (3.4-5.0); AST (GOT) 23 U/L (15-37); BICARBONATE 25.2 MEQ/L (21.0-32.0); BLOOD UREA NITROGEN 7 MG/DL (7-18); CALCIUM 8.9 MG/DL (8.5-10.1); CHLORIDE 105 MEQ/L (98-107); CREATININE 0.75 MG/DL (0.50-1.00); GLOMERULAR FILTRATION RATE 97 ML/MIN (>89); GLUCOSE,RANDOM 78 MG/DL (74-106); MAGNESIUM 1.8 MG/DL (1.5-2.5); SODIUM (NA) 140 MEQ/L (136-145)
[2017-08-10 16:45] LABS: ALKALINE PHOSPHATASE 69 U/L (45-117); ALT (GPT) 39 U/L (10-53); TOTAL BILIRUBIN ADULT 0.4 MG/DL (0.2-1.0); TOTAL PROTEIN 7.4 GM/DL (6.4-8.2)
[2017-08-10] MEDS ORDERED: PROM1SUP7 RECTAL (16:47)
[2017-08-10] MEDS ORDERED: CEPH-460 PO (16:54)
[2017-08-10] MEDS ORDERED: cefTRIAXone INJ 1,000 MG in SODIUM CHLORIDE 0.9% INJ 100 ML IV ONE (17:00)
--- NOTE | 2017-08-12 08:25 | EKG ---
Date Performed: 08/10/2017 Time Performed: 16:10:57 PTAGE: 21 years EKG: Sinus rhythm WITH SHORT FL INTERVAL NONSPECIFIC T-WAVE ABNORMALITY BORDERLINE ECG PREVIOUS TRACING : 08/09/2013 16.17 DOCTOR: Rashad Da Silva Interpretating Date/Time 08/12/2017 08:17:15
== END 2017-08-10 18:54 | disposition home or self-care (01) ==
LOC: NEPD 15:15
DX: O26.892 Other specified pregnancy related conditions, second trimester (principal); R55 Syncope and collapse; R82.71 Bacteriuria; O21.9 Vomiting of pregnancy, unspecified; Z3A.15 15 weeks gestation of pregnancy
CPT/HCPCS: 71045; 80053; 81001; 83735; 85025; 93005; 96374; 99285; J0696; J7030